=== PATIENT | male | born 1995 | race Two or more races ===

== ENCOUNTER 2022-06-30 20:10 | Emergency (ER) | payer SELFPAY ==
[~2022-06-30] VITALS: Ht 167.6 cm; Wt 72.2 kg
[2022-06-30 20:49] VITALS: BP 143/89
== END 2022-07-01 03:04 | disposition left against medical advice (07) ==
LOC: ER 20:10
DX: S30.1XXA Contusion of abdominal wall, initial encounter (principal); Z53.21 Procedure and treatment not carried out due to patient leaving prior to being seen by health care provider; V43.52XA Car driver injured in collision with other type car in traffic accident, initial encounter; Y93.89 Activity, other specified; Y92.410 Unspecified street and highway as the place of occurrence of the external cause; Y99.8 Other external cause status